=== PATIENT | female | born 1995 | race Caucasian/White ===

== ENCOUNTER 2016-05-16 09:55 | Day surgery (SDC) | payer OTHER ==
[2016-05-15 14:22] VITALS: BMI 33.8
[~2016-05-16] VITALS: Ht 167.6 cm; Wt 101.3 kg
[2016-05-16] VITALS (12 sets, daily range): BP systolic 109–127; BP diastolic 56–71; PULSE 60–73; RESP 11–18; Ht 167.6 cm; Wt 101.3 kg
--- NOTE | 2016-05-16 13:10 | HPN ---
Date/Time of Note Date/Time of Note DATE: 05/16/16 TIME: 13:09 Interval H&P Admission Note Pt. seen H&P reviewed: No system changes SCOTT VALERIO DPM May 16, 2016 13:10
[2016-05-16] MEDS ORDERED: DEXAMETHASONE 4 MG/ML 1 ML INJ ONE (13:22)
[2016-05-16] MEDS ORDERED: BUPIVACAINE 0.5% (SDV) 30 ML INJ ONE (13:22)
[2016-05-16] MEDS ORDERED: MIDAZOLAM 1 MG/ML 2 ML INJ ONE (13:27)
[2016-05-16] MEDS ORDERED: FENTAnyl 50 MCG/ML VIAL ONE (13:28)
[2016-05-16] MEDS ORDERED: POVIDONE IODINE 10% 28.4 GM OINT ONE (14:01)
[2016-05-16] MEDS ORDERED: LIDOCAINE 2% (SDV) 5 ML INJ ONE (14:27)
[2016-05-16] MEDS ORDERED: ONDANSETRON 4 MG INJ ONE (14:27)
[2016-05-16] MEDS ORDERED: PROPOFOL 20 ML ONE (14:27)
[2016-05-16] MEDS ORDERED: CEFAZOLIN 1 GM INJ ONE (14:27)
[2016-05-16] MEDS ORDERED: ONDANSETRON 4 MG INJ IV PRN (14:30)
[2016-05-16] MEDS ORDERED: FENTAnyl 50 MCG/ML VIAL IV PRN (14:30)
[2016-05-16] MEDS ORDERED: METOCLOPRAMIDE 10 MG INJ IV PRN (14:30)
[2016-05-16] MEDS ORDERED: DIPHENHYDRAMINE 50 MG INJ IV PRN (14:30)
[2016-05-16] MEDS ORDERED: MEPERIDINE 25 MG INJ IV PRN (14:30)
[2016-05-16] MEDS ORDERED: HYDROmorphONE (0.2 MG/ML) 10ML SYG IV PRN ×2 (14:30)
--- NOTE | 2016-05-16 16:29 | PREOPHP ---
DATE OF ADMISSION: 05/16/2016 REASON FOR ADMISSION: The patient is being admitted to the hospital for elective foot surgery as palliative treatment unsuccessful. The patient has been explained surgery, complications and alternatives of elective foot surgery. The patient is having pain in the left bunion area. ALLERGIES: PENICILLIN. MEDICATIONS: The patient denies taking any. REVIEW OF SYSTEMS: Heart, lung, liver, kidney, thyroid, negative. Diabetes negative. SOCIAL HISTORY: Negative smoking and alcohol. See any other pertinent history by Dr. Munoz. PHYSICAL EXAMINATION: LOWER EXTREMITY: This shows a DP and PT equal, regular. NEUROLOGICAL: Negative for pathology. DERMATOLOGICAL: Negative for pathology. MUSCULOSKELETAL: X-ray findings show hallux abductor valgus with bunion deformity, left foot. FINAL DIAGNOSIS: Hallux abductor valgus with bunion deformity, left foot. Dictated By: SCOTT LUJAN/DARIA Conf#: [id number] DID#: [id number] MTDD
== END 2016-05-16 17:00 | disposition home or self-care (01) ==
LOC: SDS 09:55
PROVIDERS: ATTEND Podiatrist
DX: M20.12 Hallux valgus (acquired), left foot (principal); M21.612 Bunion of left foot; E66.9 Obesity, unspecified; Z68.36 Body mass index [BMI] 36.0-36.9, adult
CPT/HCPCS: 28296; 88304; 88311; C1713; J0690; J1100; J2250; J2405; J3010; Z7512; Z7610